=== PATIENT | male | born 1985 | race Caucasian/White ===

== ENCOUNTER 2024-06-04 16:06 | Emergency (ER) | payer SELFPAY ==
[2024-06-04 16:26] VITALS: BP 123/84; PULSE 96; RESP 15; TEMP 36.8; O2SAT 97; BMI 27.7
[2024-06-04 16:42] LABS: Basophils % 0.2 %; Lymphocytes # 1.3 10^3/uL (0.8-4.8); Lymphocytes % 15.7 %; Mean Corpuscular HGB Conc 34.7 g/dL (30-55); Mean Corpuscular Hemoglobin 31.6 pg (27-33); Mean Corpuscular Volume 91.3 fl (82-101); Mean Platelet Volume 9.9 fL (7.4-10.4); Monocytes # 0.3 10^3/uL (0.2-0.9); Neutrophils # 6.85 10^3/uL (1.8-7.7); Neutrophils % 80.9 %; Nucleated Red Blood Cells % 0 %; Platelet Count 278 10^3/cmm (157-399); Red Blood Count 4.93 10^6/uL (3.85-5.65); Red Cell Distribution Width 11.5 % (12.1-15.1); White Blood Count 8.47 10^3/uL (3.29-11.43)
--- NOTE | 2024-06-04 16:51 | CTR_ITS ---
PROCEDURE INFORMATION: Exam: CT Abdomen And Pelvis With Contrast Exam date and time: 06/04/2024 5:38 PM Age: 38 years old Clinical indication: Abdominal pain; Generalized; Prior surgery; Surgery date: 6+ months; Surgery type: Hernia age 16; Additional info: Abd pain TECHNIQUE: Imaging protocol: Computed tomography of the abdomen and pelvis with contrast. Radiation optimization: All CT scans at this facility use at least one of these dose optimization techniques: automated exposure control; mA and/or kV adjustment per patient size (includes targeted exams where dose is matched to clinical indication); or iterative reconstruction. Contrast material: OMNIPAQUE 350; Contrast volume: 100 ml; Contrast route: INTRAVENOUS (IV); COMPARISON: No relevant prior studies available. RADIATION DOSE METRICS: Total DLP (mGy-cm): 550.53 FINDINGS: Liver: Normal. No mass. Gallbladder and biliary ducts: Normal. No calcified stones. No ductal dilation. Pancreas: Normal. No ductal dilation. Spleen: There is a 1.7 cm hypodense lesion measuring 29 Hounsfield units in the lateral cortex of the spleen which does not meet imaging criteria for a simple cyst and is incompletely assessed on this examination. Multiple subcentimeter similar appearing lesions are seen along the posterior aspect of the spleen. Adrenal glands: Normal. No mass. Kidneys and ureters: There is a 7 mm hypodense structure in the inferior pole of the right kidney which is too small characterize may represent simple cysts. No further workup is recommended.. No hydronephrosis. Stomach and bowel: Unremarkable. No obstruction. No mucosal thickening. Appendix: No evidence of appendicitis. Intraperitoneal space: Unremarkable. No free air. No significant fluid collection. Vasculature: Unremarkable. No abdominal aortic aneurysm. Lymph nodes: Unremarkable. No enlarged lymph nodes. Urinary bladder: Unremarkable as visualized. Reproductive: Unremarkable as visualized. Bones/joints: Unremarkable. No acute fracture. Soft tissues: Unremarkable. CT/CT abdomen pelvis w con* [id number] IMPRESSION: 1. No bowel obstruction or inflammatory process associated with the bowel. 2. No free air or significant free fluid in the abdomen or pelvis. 3. No evidence of appendicitis. 4. There is a 1.7 cm hypodense lesion measuring 29 Hounsfield units in the lateral cortex of the spleen which does not meet imaging criteria for a simple cyst and is incompletely assessed on this examination. Multiple subcentimeter similar appearing lesions are seen along the posterior aspect of the spleen. For patients without history of cancer, recommend follow-up MRI in 6-12 months. With history of cancer, recommend evaluation with non-emergent PET vs. MRI vs. biopsy.
--- NOTE | 2024-06-04 16:54 | ED_ITS ---
HPI - Abdominal Pain 2 General: Chief Complaint: Abdominal Pain Stated Complaint: abd pain Time Seen by Provider: 06/04/24 16:47 Source: patient Mode of arrival: ambulatory Limitations: no limitations History of Present Illness: 38-year-old male states that he has been having some diffuse abdominal cramping and flank pains been going on for weeks states been having nausea vomiting and diarrhea as well. States has been feeling fatigued had some weight loss. Sent here from urgent care for labs and imaging to states that he does not feel well he denies any fevers denies any worse improving factors he rates his belly pain a 5 out of 10. Denies any history abdominal surgery Associated Symptoms: Reports diarrhea, nausea and vomiting; Denies chills, dysuria and fever(s) Related Data Previous Rx's ?Medication ?Instructions ?Recorded dicyclomine 20 mg tablet 20 mg PO BID PRN abdominal p ain 06/04/24 #20 tabs ondansetron 4 mg disintegrating 4 mg PO Q6H PRN nausea and 06/04/24 tablet vomiting #14 tabs Allergies Allergy/AdvReac Type Severity Reaction Status Date / Time No Known Allergies Allergy Unverified 06/04/24 15:15 Review of Systems 2 Const: Reports: fatigue; Denies: fever(s), chills, body aches or change in appetite ENMT: Denies: throat pain or dental pain Card: Denies: chest pain Resp: Denies: dyspnea GI: Reports: abdominal pain, nausea, vomiting and diarrhea : Denies: dysuria Musc: Denies: neck pain or back pain Skin/Breast: Denies: rash Neuro: Denies: headache(s) [facility] ED 2 PFSH: Social History Smoking and tobacco/nicotine status: never used tobacco/nicotine Physical Exam 2 Const: COMMON NORMALS: no acute distress, patient oriented x3 and healthy appearing HENMT: COMMON NORMALS: normocephalic and atraumatic HEAD & SCALP: n ormocephalic and atraumatic Eye: COMMON NORMALS: conjunctivae normal CONJUNCTIVA: Yes conjunctivae normal Neck/C-Spine: COMMON NORMALS: full ROM and supple Chest: COMMONS NORMALS: normal inspection of the chest Resp: COMMON NORMALS: normal respiratory effort, No retractions, No use of accessory muscles and clear to auscultation bilaterally AUSCULTATION: clear to auscultation bilaterally Cardio: COMMON NORMALS: regular rate, regular rhythm and No murmurs present (Cardio) RATE: regular rate RHYTHM: regular rhythm GI: COMMON NORMALS: Normal to inspection, nondistended, normoactive bowel sounds present, Soft to palpation and no masses PALPATION: Yes Soft to palpation OTHER: diffuse tenderness Extremity: COMMON NORMALS: normal to inspection and full ROM Neuro: COMMON NORMALS: patient oriented x3, moves all extremities and no focal motor deficits Psych: COMMON NORMALS: mental status grossly normal, Normal thought process present and cooperative THOUGHT PROCESS: Normal thought process present Skin: COMMON NORMALS: no rashes or lesions noted and no wounds GENERAL SKIN EXAM: no rashes or lesions noted Course 2 Vital Signs: Vital signs: Vital Signs Temperature 98.2 F 06/04/24 16:26 Pulse Rate 96 06/04/24 16:26 Respiratory Rate 15 06/04/24 16:26 Blood Pressure 123/84 06/04/24 16:26 Pulse Oximetry 97 06/04/24 16:26 Oxygen Delivery Me thod Room Air 06/04/24 16:26 MDM - Abdominal Pain Medical Decision Making Patient presents here with abdominal pain along with vomiting blood work here is normal CT scan showed no acute findings I did inform of the spleen findings he has a follow-up with his PCP for that. Will prescribe Zofran and Bentyl he is to return if worsening. Medical Records I reviewed the patient's medical records. Lab Data I reviewed the patient's lab results. 06/04/24 16:19 06/04/24 16:19 Labs/Radiology: Radiology Impressions Abdomen/Pelvis CT 06/04/24 16:51 IMPRESSION: 1. No bowel obstruction or inflammatory process associated with the bowel. 2. No free air or significant free fluid in the abdomen or pelvis. 3. No evidence of appendicitis. 4. There is a 1.7 cm hypodense lesion measuring 29 Hounsfield units in the lateral cortex of the spleen which does not meet imaging criteria for a simple cyst and is incompletely assessed on this examination. Multiple subcentimeter similar appearing lesions are seen along the posterior aspect of the spleen. For patients without history of cancer, recommend follow-up MRI in 6-12 months. With history of cancer, recommend evaluation with non-emergent PET vs. MRI vs. biopsy. Laboratory Results WBC 8.47 10^3/uL (3.29-11.43) 06/04/24 16:19 RBC 4.93 10^6/uL (3.85-5.65) 06/04/24 16:19 Hgb 15.60 g/dL (11.27-16.99) 06/04/24 16:19 Hct 45.0 % (37-53) 06/04/24 16:19 MCV 91.3 fl (82-101) 06/04/24 16:19 MCH 31.6 pg (27-33) 06/04/24 16:19 MCHC 34.7 g/dL (30-55) 06/04/24 16:19 RDW 11.5 % (12.1-15.1) L 06/04/24 16:19 Plt Count 278 10^3/cmm (157-399) 06/04/24 16:19 MPV 9.9 fL (7.4-10.4) 06/04/24 16:19 Neut % (Auto) 80.9 % 06/04/24 16:19 Lymph % (Auto) 15.7 % 06/04/24 16:19 [place] % (Auto) 3.0 % 06/04/24 16:19 Eos % (Auto) 0.0 % 06/04/24 16:19 Baso % (Auto) 0.2 % 06/04/24 16:19 Neut # (Auto) 6.85 10^3/uL (1.8-7.7) 06/04/24 16:19 Lymph # (Auto) 1.3 10^3/uL (0.8-4.8) 06/04/24 16:19 [place] # (Auto) 0.3 10^3/uL (0.2-0.9) 06/04/24 16:19 Eos # (Auto) 0.0 10^3/uL (0.0-0.8) 06/04/24 16:19 Baso # (Auto) 0.0 10^3/uL (0.0-0.1) 06/04/24 16:19 Nucleated RBC % (auto) 0 % 06/04/24 16:19 Nucleated RBCs # 0.0 /100WBC 06/04/24 16:19 Sodium 141 mmol/L (136-145) 06/04/24 16:19 Potassium 4.0 mmol/L (3.5-5.1) 06/04/24 16:19 Chloride 105 mmol/L (98-107) 06/04/24 16:19 Carbon Dioxide 26 mmol/L (22-29) 06/04/24 16:19 Anion Gap 14.0 (5-19) 06/04/24 16:19 BUN 9 mg/dL (6-20) 06/04/24 16:19 Creatinine 0.9 mg/dL (0.7-1.2) 06/04/24 16:19 GFR Calculation 93.9 mL/min (90-130) 06/04/24 16:19 Glucose 111 mg/dL (65-115) 06/04/24 16:19 Calculated Osmolality 291 mOsm/kg (285-295) 06/04/24 16:19 Calcium 9.3 mg/dL (8.5-10.5) 06/04/24 16:19 Total Bilirubin 0.6 mg/dL (0.15-1.2) 06/04/24 16:19 AST 18 U/L (0-40) 06/04/24 16:19 ALT 28 U/L (0-41) 06/04/24 16:19 Alkaline Phosphatase 103 U/L (40-130) 06/04/24 16:19 Total Protein 7.2 g/dL (6.6-8.7) 06/04/24 16:19 Albumin 4.5 g/dL (3.5-5.2) 06/04/24 16:19 Globulin 2.7 g/dL (1.3-4.6) 06/04/24 16:19 Lipase 20 U/L (13-60) 06/04/24 16:19 Urine Color Yellow (Yellow) 06/04/24 18:20 Urine Appearance Clear (CLEAR) 06/04/24 18:20 Urine pH 6.0 (5-7) 06/04/24 18:20 Ur Specific [place] 1.053 (1.005-1.030) H 06/04/24 18:20 Urine Protein Trace (Negative) A 06/04/24 18:20 Urine Glucose (UA) Negative (Normal) 06/04/24 18:20 Urine Ketones 2+ (Negative) H 06/04/24 18:20 Urine Blood Negative (Negative) 06/04/24 18:20 Urine Nitrate Negative (Negative) 06/04/24 18:20 Urine Bilirubin Negative (Negative) 06/04/24 18:20 Urine Urobilinogen 0.2 mg/dL (Negative) 06/04/24 18:20 Ur Leukocyte Esterase Negative (Negative) 06/04/24 18:20 Urine RBC 0-2 /hpf (0-2) 06/04/24 18:20 Urine WBC 0-5 /hpf (0-5) 06/04/24 18:20 Ur Squamous Epith Cells 0-5 /hpf (0-5) 06/04/24 18:20 Amorphous Sediment Not Reportable 06/04/24 18:20 Urine Bacteria None seen /hpf (NONE) 06/04/24 18:20 Hyaline Casts 1.21 /lpf 06/04/24 18:20 All radiology interpretation(s) finalized by discharge Discharge Plan Discharge Patient Disposition: Home Clinical Impression: Vomiting Abdominal pain Qualifiers: Abdominal location: right lower quadrant Qualified Code(s): R10.31 - Right lower quadrant pain Condition: Stable Prescriptions: New ondansetron 4 mg tablet,disintegrating 4 mg PO Q6H PRN (Reason: nausea and vomiting) Qty: 14 0RF dicyclomine 20 mg tablet 20 mg PO BID PRN (Reason: abdominal pain) Qty: 20 0RF Discharge Orders: Discharge ED (Routine); Ordered 06/04/24 Ordered By: Erik Gonzalez Discharge Diet: Advance as tolerated Discharge Activity: Resume usual activity Patient Instructions: Acute Nausea and Vomiting (ED), Abdominal Pain (ED) Print Language: Faroese Coding Level of Care Code ED [employer] for Tawana Eldridge
[2024-06-04] MEDS: morphine 4 mg/mL SDV 1 mL IVP (17:08)
[2024-06-04] MEDS: sodium chloride 0.9% 1,000 ML 999 ML IV (17:08)
[2024-06-04] MEDS: ondansetron 2 mg/ML SDV 2 mL 4 MG IVP (17:08)
[2024-06-04 17:32] LABS: Alanine Aminotransferase 28 U/L (0-41); Albumin Level 4.5 g/dL (3.5-5.2); Alkaline Phosphatase 103 U/L (40-130); Aspartate Amino Transferase 18 U/L (0-40); Blood Urea Nitrogen 9 mg/dL (6-20); Calcium 9.3 mg/dL (8.5-10.5); Carbon Dioxide 26 mmol/L (22-29); Chloride 105 mmol/L (98-107); Creatinine Clr Calc Pharmacy 108.3057; Globulin 2.7 g/dL (1.3-4.6); Glomerular Filtration Rate 93.9 mL/min (90-130); Glucose 111 mg/dL (65-115); Lipase 20 U/L (13-60); Osmolality Calculated 291 mOsm/kg (285-295); Sodium 141 mmol/L (136-145); Total Bilirubin 0.6 mg/dL (0.15-1.2); Total Protein 7.2 g/dL (6.6-8.7)
[2024-06-04] MEDS: iohexol 350 mg/mL 500 mL Btl (per mL) IV (17:41)
[2024-06-04 18:33] LABS: Bilirubin Urine Negative (Negative); Blood Urine Negative (Negative); Glucose Urine UA Negative (Normal); Ketones Urine 2+ (Negative); Leukocyte Esterase Urine Negative (Negative); Nitrate Urine Negative (Negative); Protein Urine Trace (Negative); Urine Appearance Clear (CLEAR); Urine Color Yellow (Yellow); Urobilinogen Urine 0.2 mg/dL (Negative)
[2024-06-04 18:38] LABS: Add Urine Microscopic? YES; Bacteria Urine None Seen /hpf; Hyaline Casts Urine 1.21 /lpf; RBC Urine 0-2 /hpf (0-2); Squamous Epithelial Cell Urine 0-5 /hpf (0-5); WBC Urine 0-5 /hpf (0-5)
[2024-06-04 18:42] LABS: Specific Gravity, Urine 1.053 (1.005-1.030)
[2024-06-04 18:43] LABS: Add Urine Culture? No
[2024-06-04 19:02] VITALS: BP 120/60; PULSE 77; RESP 16; O2SAT 98
[2024-06-04] MEDS: ondansetron hcl ODT 4 mg Tab 8 MG PO (19:03)
== END 2024-06-04 19:03 | disposition home or self-care (01) ==
PROVIDERS: Emergency Provider Emergency Medicine
DX: R11.10 Vomiting, unspecified (principal); R10.31 Right lower quadrant pain
CPT/HCPCS: 36415; 74177; 80053; 81001; 83690; 85025; 87400; 96361; 96374; 96375; 99285; J2270; J2405; J7030; Q0162